=== PATIENT | male | born 1960 | race Caucasian/White ===

== ENCOUNTER → 2023-11-08 | Day surgery (SDC) | payer MEDICAID ==
[~2023-11-08] VITALS: Ht 175.3 cm; Wt 83.9 kg
[~2023-11-08] MED LIST: ACETAMINOPHEN 1000MG/100ML 100 ML IV NR; AMIT25TA9 PO; AMLO10TA80 PO; BUPIVACAINE HCL/PF 0.5% (5MG/ML) 10ML ONE; CEFAZOLIN SODIUM 1000MG/VIAL ONE; CLON0.5T23 PO; DEXAMETHASONE 4MG/ML 1ML VIAL ONE; ESCI20TA PO; FENTANYL CITRATE/PF 50MCG/ML 2ML VIAL IV PRN; FENTANYL CITRATE/PF 50MCG/ML 2ML VIAL ONE; HYDROCODONE/ACETAMINOPHEN 5/325MG TABLET PO PRN; HYDROMORPHONE HCL/PF 1MG/ML INJ IV PRN; LIDOCAINE HCL 1% 10 MG/ML 10ML VIAL ONE; LIDOCAINE HCL/PF 1% 10 MG/ML 5ML VIAL ONE; MELO-106 PO; MIDAZOLAM HCL 2 MG/2 ML VIAL ONE; NALOXONE HCL 0.4MG/ML VIAL IV PRN; ONDANSETRON HCL 4MG/2ML INJ IV PRN; ONDANSETRON HCL 4MG/2ML INJ ONE; PANT40TA51 PO; POLYMYXIN B SULFATE 500000 UNITS/VIAL ONE; PROPOFOL 200MG/20ML VIAL IV ONE; ROCURONIUM BROMIDE 10MG/ML VIAL 5ML IV ONE; SIMV10TA97 PO; SKIN ADHESIVE 0.7 GM EA TOP ONE; SUGAMMADEX SODIUM 200MG/2ML VIAL IV ONE
[2023-11-08] MEDS: LACTATED RINGERS 1,000 ML IV SCH (06:54)
== END | disposition home or self-care (01) ==
LOC: OR 05:49
PROVIDERS: ATTEND Specialist
DX: K40.90 Unilateral inguinal hernia, without obstruction or gangrene, not specified as recurrent (principal); I10 Essential (primary) hypertension; E78.5 Hyperlipidemia, unspecified; M19.90 Unspecified osteoarthritis, unspecified site; F41.9 Anxiety disorder, unspecified; F32.9 Major depressive disorder, single episode, unspecified; Z79.899 Other long term (current) drug therapy; Z98.890 Other specified postprocedural states
CPT/HCPCS: 49505; J3010; J3490 ×5; J0690; J1100; J2250; J2405; J2704; C1781; J0131